=== PATIENT | male | born 1945 | race Caucasian/White ===

== ENCOUNTER → 2020-05-10 | Outpatient (CLI) | payer MEDICARE, BC ==
[2016-02-28 16:48] VITALS: BP 172/86
[~2020-05-10] MED LIST: ASPIR LOW81 MG PO; CENTRUM SILVER1 EACH PO; CO Q-1010 M2; METOPROLOL SUCC25 M1 PO; VITAMIN C PUR1000 MG PO
[2020-05-10 10:24] LABS: EOS # 0.1 (0.04-0.40); HEMATOCRIT 47.2 % (42.0-52.0); HEMOGLOBIN 15.5 g/dL (13.5-18.0); LYMPH# 3.1 (1.50-4.00); MEAN CELL VOLUME 90 fl (78-100); MEAN CORPUSCULAR HEMOGLOBIN 30 pg (27-31); MEAN CORPUSCULAR HGB CONC 33 g/dL (33-37); MEAN PLATELET VOLUME 9.5 fl (7.4-10.4); MONO # 0.5 (0.20-0.80); NEU # 3.2 (1.40-6.50); PLATELET COUNT 203 K/mm3 (130-400); RED BLOOD COUNT 5.24 M/mm3 (4.20-5.60); RED CELL DISTRIBUTION WIDTH 13.4 % (11.5-14.5); WHITE BLOOD COUNT 7.1 K/mm3 (4.8-10.8)
[2020-05-10 10:31] LABS: POTASSIUM 4.7 mmol/L (3.5-5.1)
[2020-05-10 10:32] LABS: ALBUMIN 4.2 g/dL (3.4-4.8)
[2020-05-10 10:33] LABS: CALCIUM 9.3 mg/dL (8.3-10.5)
[2020-05-10 10:34] LABS: TOTAL PROTEIN 6.8 g/dL (6.2-8.1)
[2020-05-10 10:36] LABS: TOTAL BILIRUBIN 0.5 mg/dL (0.2-1.2)
[2020-05-10 13:13] LABS: ERYTHROCYTE SEDIMENTATION RATE 7 mm/hr (0-20)
[2020-05-10 21:11] LABS: TESTOSTERONE 581 ng/dL (221-716)
== END ==
LOC: LAB 10:11
PROVIDERS: Internal Medicine
DX: Z12.5 Encounter for screening for malignant neoplasm of prostate (principal); Z12.11 Encounter for screening for malignant neoplasm of colon; I25.10 Atherosclerotic heart disease of native coronary artery without angina pectoris; R73.02 Impaired glucose tolerance (oral); D64.9 Anemia, unspecified; R20.2 Paresthesia of skin; K90.9 Intestinal malabsorption, unspecified; N52.9 Male erectile dysfunction, unspecified

== ENCOUNTER → 2020-08-09 | Outpatient (CLI) | payer MEDICARE, BC ==
[2016-02-28 16:48] VITALS: BP 172/86
== END ==
LOC: LAB 09:32
DX: Z20.828 Contact with and (suspected) exposure to other viral communicable diseases (principal)

== ENCOUNTER → 2020-12-12 | Outpatient (CLI) | payer MEDICARE, BC ==
[2016-02-28 16:48] VITALS: BP 172/86
== END ==
LOC: VAS 13:45 → RAD 14:00
DX: R06.00 Dyspnea, unspecified (principal)

== ENCOUNTER → 2021-01-06 | Outpatient (CLI) | payer MEDICARE, BC | LOC: CARDREHAB 01-04 14:53 | DX: R06.00 Dyspnea, unspecified (principal) | CPT/HCPCS: A9500 ==

== ENCOUNTER → 2021-12-11 | Outpatient (CLI) | payer MEDICARE, BC ==
[2021-12-11 14:47] LABS: BASO # 0.06 K/mm3 (0.02-0.10); EOS # 0.14 K/mm3 (0.04-0.40); EOS % 1.6 % (0.0-4.0); HEMATOCRIT 48.6 % (42.0-52.0); HEMOGLOBIN 15.9 g/dL (13.5-18.0); LYMPH# 3.09 K/mm3 (1.50-4.00); MEAN CELL VOLUME 91 fl (78-100); MEAN CORPUSCULAR HEMOGLOBIN 30 pg (27-31); MEAN CORPUSCULAR HGB CONC 33 g/dL (33-37); MEAN PLATELET VOLUME 9.9 fl (7.4-10.4); MONO # 0.67 K/mm3 (0.20-0.80); NEU # 4.46 K/mm3 (1.40-6.50); PLATELET COUNT 190 K/mm3 (130-400); RED BLOOD COUNT 5.32 M/mm3 (4.20-5.60); RED CELL DISTRIBUTION WIDTH 13.3 % (11.5-14.5); WHITE BLOOD COUNT 8.5 K/mm3 (4.8-10.8)
[2021-12-11 14:51] LABS: ALBUMIN 4.2 g/dL (3.4-4.8); POTASSIUM 4.6 mmol/L (3.5-5.1)
[2021-12-11 14:52] LABS: CALCIUM 9.5 mg/dL (8.3-10.5)
[2021-12-11 14:53] LABS: TOTAL PROTEIN 6.7 g/dL (6.2-8.1)
[2021-12-11 14:55] LABS: TOTAL BILIRUBIN 0.9 mg/dL (0.2-1.2)
[2021-12-11 15:00] LABS: MAGNESIUM 2.18 mg/dL (1.60-2.60)
== END ==
LOC: LAB 14:24
PROVIDERS: Internal Medicine
DX: M19.91 Primary osteoarthritis, unspecified site (principal); K90.9 Intestinal malabsorption, unspecified; E78.2 Mixed hyperlipidemia; I25.10 Atherosclerotic heart disease of native coronary artery without angina pectoris; R73.03 Prediabetes; I10 Essential (primary) hypertension; Z28.39 Other underimmunization status

== ENCOUNTER → 2022-03-12 | Outpatient (CLI) | payer MEDICARE, BC ==
[2022-03-12 10:42] LABS: BASO # 0.07 K/mm3 (0.02-0.10); EOS # 0.13 K/mm3 (0.04-0.40); EOS % 1.6 % (0.0-4.0); HEMATOCRIT 49.6 % (42.0-52.0); HEMOGLOBIN 16.1 g/dL (13.5-18.0); LYMPH# 3.23 K/mm3 (1.50-4.00); MEAN CELL VOLUME 94 fl (78-100); MEAN CORPUSCULAR HEMOGLOBIN 31 pg (27-31); MEAN CORPUSCULAR HGB CONC 33 g/dL (33-37); MONO # 0.51 K/mm3 (0.20-0.80); NEU # 4.33 K/mm3 (1.40-6.50); PLATELET COUNT 180 K/mm3 (130-400); RED BLOOD COUNT 5.27 M/mm3 (4.20-5.60); RED CELL DISTRIBUTION WIDTH 13.1 % (11.5-14.5); WHITE BLOOD COUNT 8.3 K/mm3 (4.8-10.8)
[2022-03-12 10:48] LABS: ALBUMIN 4.3 g/dL (3.4-4.8); POTASSIUM 4.6 mmol/L (3.5-5.1)
[2022-03-12 10:49] LABS: CALCIUM 9.5 mg/dL (8.3-10.5)
[2022-03-12 10:53] LABS: TOTAL BILIRUBIN 1.2 mg/dL (0.2-1.2)
[2022-03-12 11:03] LABS: URINE APPEARANCE CLEAR; URINE BILIRUBIN NEGATIVE (NEGATIVE); URINE BLOOD NEGATIVE (NEGATIVE); URINE COLOR DARK YELLOW; URINE GLUCOSE NEGATIVE (NEGATIVE); URINE KETONE NEGATIVE (NEGATIVE); URINE LEUKOCYTE ESTERASE NEGATIVE (NEGATIVE); URINE NITRATE NEGATIVE (NEGATIVE); URINE PROTEIN(semi-quant) TRACE (NEGATIVE); URINE UROBILINOGEN NORMAL (NORMAL); URINE WBC 0-1 /hpf (0-3)
[2022-03-12 11:04] LABS: URINE MUCUS PRESENT (NOT PRESENT)
[2022-03-12 11:51] LABS: ERYTHROCYTE SEDIMENTATION RATE 27 mm/hr (0-20)
[2022-03-12 12:06] LABS: MAGNESIUM 2.04 mg/dL (1.60-2.60)
== END ==
LOC: LAB 10:21
PROVIDERS: Internal Medicine
DX: Z12.11 Encounter for screening for malignant neoplasm of colon (principal); Z12.5 Encounter for screening for malignant neoplasm of prostate; I10 Essential (primary) hypertension; K90.9 Intestinal malabsorption, unspecified; E78.2 Mixed hyperlipidemia; I25.10 Atherosclerotic heart disease of native coronary artery without angina pectoris; R73.03 Prediabetes

== ENCOUNTER → 2022-10-04 | Outpatient (CLI) | payer MEDICARE, BC ==
[2022-10-04 16:08] LABS: BASO # 0.06 K/mm3 (0.02-0.10); EOS # 0.14 K/mm3 (0.04-0.40); EOS % 1.4 % (0.0-4.0); HEMATOCRIT 48.5 % (42.0-52.0); LYMPH# 4.23 K/mm3 (1.50-4.00); MEAN CELL VOLUME 94 fl (78-100); MEAN CORPUSCULAR HEMOGLOBIN 31 pg (27-31); MEAN CORPUSCULAR HGB CONC 33 g/dL (33-37); MEAN PLATELET VOLUME 9.7 fl (7.4-10.4); MONO # 0.69 K/mm3 (0.20-0.80); PLATELET COUNT 222 K/mm3 (130-400); RED BLOOD COUNT 5.14 M/mm3 (4.20-5.60); WHITE BLOOD COUNT 10.2 K/mm3 (4.8-10.8)
[2022-10-04 16:19] LABS: ALBUMIN 4.1 g/dL (3.4-4.8); POTASSIUM 4.6 mmol/L (3.5-5.1)
[2022-10-04 16:21] LABS: TOTAL PROTEIN 7.3 g/dL (6.2-8.1)
[2022-10-04 16:23] LABS: TOTAL BILIRUBIN 0.8 mg/dL (0.2-1.2)
[2022-10-04 16:28] LABS: MAGNESIUM 1.94 mg/dL (1.60-2.60)
== END ==
LOC: LAB 15:45
PROVIDERS: Internal Medicine
DX: M16.0 Bilateral primary osteoarthritis of hip (principal); M17.0 Bilateral primary osteoarthritis of knee; I10 Essential (primary) hypertension; E78.2 Mixed hyperlipidemia; I25.10 Atherosclerotic heart disease of native coronary artery without angina pectoris; K90.9 Intestinal malabsorption, unspecified; I70.8 Atherosclerosis of other arteries; R10.2 Pelvic and perineal pain; R73.03 Prediabetes; Z96.652 Presence of left artificial knee joint